=== PATIENT | male | born 1985 | race Caucasian/White ===

== ENCOUNTER 2023-12-23 08:13 | Inpatient (IN) | payer OTHER ==
[2023-12-23] MEDS ORDERED: ONDANSETRON 4 MG/2 ML VIAL ONE (08:29)
[2023-12-23] MEDS ORDERED: MORPHINE 4 MG/ML SYR ONE ×2 (08:30→09:48)
[2023-12-23 08:32] LABS: Absolute Basophils 0.1 K/uL (0-0.5); Absolute Eosinophils 0.3 K/uL (0-0.5); Absolute Lymphocytes (CBC) 3.2 K/uL (0.7-4.9); Absolute Neutrophil 5.6 K/uL (1.8-8.0); Basophils % 1.2 % (0-1.3); Eosinophils % 2.8 % (0-4.4); Hematocrit 43.9 % (39.6-49.0); Hemoglobin 15.1 g/dL (13.6-17.9); Lymphocytes % 31.9 % (15.3-44.8); MCH 30.7 pg (27.0-35.0); MCHC 34.3 g/dL (32.0-36.0); MCV 89.5 fL (80-100); MPV 8.2 fL (7.6-11.3); Monocytes % 9.4 % (3.3-12.3); Neutrophils % 54.7 % (41.7-73.7); Nucleated RBC Absolute Count 0.1 (0-0); Nucleated Red Blood Cells % 0.8 % (0-0); Platelets 353 thou/uL (152-406); RBC Red Blood Cell Count 4.91 M/uL (4.33-5.43); Red Cell Distribution Width 13.1 % (12.1-15.2)
[2023-12-23 08:51] LABS: Anion Gap 7.4 mEq/L (5.0-15.0); BUN Blood Urea Nitrogen 14 mg/dL (7-18); Bicarbonate 29 mEq/L (21-32); Glomerular Filtration Rate 85 ml/min (=/>90); Glucose Level 112 mg/dL (74-106); Potassium 3.4 mEq/L (3.5-5.1); Sodium Level 138 mEq/L (136-145)
[2023-12-23 09:02] LABS: Troponin High Sensitivity < 3.0 pg/mL (<58.9)
[2023-12-23 09:04] LABS: Albumin 4.2 g/dL (3.4-5.0); Albumin/Globulin Ratio 1.1 (1.1-1.8); Bilirubin Direct 0.2 mg/dL (0-0.2); Bilirubin Indirect, Calculated 0.3 mg/dL (0.2-0.8); Bilirubin Total 0.5 mg/dL (0.2-1.0); Globulin 3.8 g/dL (2.3-3.5)
--- NOTE | 2023-12-23 09:04 | RAD REPORT ---
EXAM DESCRIPTION: US - Abdomen Exam Limited - 12/23/2023 8:50 am CLINICAL HISTORY: Abdominal pain. COMPARISON: None. FINDINGS: Multiple gallstones. Gallbladder wall upper limits normal thickness. The biliary tree is normal caliber. IMPRESSION: Cholelithiasis
[2023-12-23] MEDS ORDERED: MAGNES/ALUMIN/SIMET 30ML UCUP ONE (09:09)
[2023-12-23] MEDS ORDERED: LIDOCAINE VISCOUS 2% 10ML ORAL SOLN ONE (09:09)
--- NOTE | 2023-12-23 09:11 | RAD REPORT ---
EXAM DESCRIPTION: CT - Chest Abdomen Pelvis W Cont - 12/23/2023 9:00 am CLINICAL HISTORY: Chest and abdominal pain COMPARISON: none TECHNIQUE: Computed axial tomography of the chest, abdomen and pelvis was obtained. 100 cc Isovue-30 0 was administered intravenously. Oral contrast was not requested. This limits evaluation of bowel. All CT scans are performed using dose optimization technique as appropriate and may include automated exposure control or mA/KV adjustment according to patient size. FINDINGS: The lungs are clear No mediastinal or hilar lymphadenopathy. No pleural effusion. No pericardial effusion. Liver, spleen, pancreas, adrenals and kidneys are unremarkable Multiple gallstones better seen on ultrasound same date. Gallbladder wall does not appear thickened. Biliary tree normal caliber No evidence of diverticulitis Normal appendix. 22 centimeter lipoma extends from the left gluteus region inferiorly to posteromedial to the left fem ur IMPRESSION: Cholelithiasis without evidence of cholecystitis 22 centimeter lipoma left pelvis/left leg
[2023-12-23] MEDS ORDERED: NA CHLORIDE 0.9% 1,000 ML ONE (09:47)
[2023-12-23] MEDS ORDERED: CEFTRIAXONE 1000 MG/VIAL ONE (09:47)
--- NOTE | 2023-12-23 11:31 | RAD REPORT ---
EXAM DESCRIPTION: Nathaly Single View12/23/2023 10:09 am CLINICAL HISTORY: Chest pain COMPARISON: none FINDINGS: The lungs appear clear of acute infiltrate. The heart is normal size IMPRESSION: No acute abnormalities displayed
--- NOTE | 2023-12-23 12:58 | RAD REPORT ---
EXAM DESCRIPTION: MRI - Cholangiogram - 12/23/2023 12:44 pm CLINICAL HISTORY: abd pain COMPARISON: Abdomen Exam Limited dated 12/23/2023; Chest Abdomen Pelvis W Cont dated 12/23/2023 FINDINGS: Three-dimensional MRCP was performed using maximum intensity projection reconstruction on the same work station. No intrahepatic biliary tree dilatation is seen. The common bile duct is normal caliber without evide nce of retained stone, stricture or mass. The pancreatic duct is not pathologically dilated. Cholelithiasis. Limited T2 sequences through the abdomen demonstrates no bulky adenopathy, significant free fluid or abscess. IMPRESSION: Cholelithiasis. No evidence of choledocholithiasis. No pathologic biliary dilatation.
--- NOTE | 2023-12-23 13:24 | ER ---
Nurse's Notes [facility] Name: Arsalan Mckee Age: 38 yrs Sex: Male : 1985 Arrival Date: 12/23/2023 Time: 08:13 Bed 3 Private MD: Diagnosis: Acute pancreatitis without necrosis or infection, unspecified;Other cholelithiasis without obstruction Presentation: 12/22 08:21 Chief complaint: Patient states: sudden onset midsternal chest pain radiating to iw stomach about 20 min COMPLIANCE ADVISOR. Coronavirus screen: At this time, the client does not indicate any symptoms associated with coronavirus-19. Ebola Screen: Patient negative for fever greater than or equal to 101.5 degrees Fahrenheit, and additional compatible Ebola Virus Disease symptoms Patient denies exposure to infectious person. No symptoms or risks identified at this time. Initial Sepsis Screen: Does the patient meet any 2 criteria? No. Patient's initial sepsis screen is negative. Does the patient have a suspected source of infection? No. Patient's initial sepsis screen is negative. Risk Assessment: Do you want to hurt yourself or someone else? Patient reports no desire to harm self or others. Onset of symptoms was December 23, 2023. 08:21 Method Of Arrival: Ambulatory iw 08:21 Acuity: TAMARA 2 iw Triage Assessment: 08:28 General: Appears in no apparent distress. comfortable, Behavior is calm, cooperative, ld1 appropriate for age. Pain: Complains of pain in chest Pain does not radiate. Pain currently is 8 out of 10 on a pain scale. Quality of pain is described as sharp, shooting, throbbing, Pain began suddenly, Is continuous. EENT: No signs and/or symptoms were reported regarding the EENT system. Neuro: Level of Consciousness is awake, alert, obeys commands, Oriented to person, place, time, situation. Cardiovascular: Capillary refill < 3 seconds Patient's skin is warm and dry. Rhythm is sinus rhythm. Respiratory: Airway is patent Respiratory effort is even, unlabored. GI: Abdomen is round non-distended. : No signs and/or symptoms were reported regarding the genitourinary system. Derm: No signs and/or symptoms reported regarding the dermatologic system. Musculoskeletal: No signs and/or symptoms reported regarding the musculoskeletal system. Historical: - Allergies: 08:22 No Known Allergies; iw - Home Meds: 08:22 phentermine oral [Active]; iw - PMHx: 08:22 None; iw - Immunization history:: Adult Immunizations up to date. - Infectious Disease History:: Denies. - Family history:: not pertinent. - Social history:: Smoking status: Patient denies any tobacco usage or history of. - Hospitalizations: : No recent hospitalization is reported. Screenin:29 [facility] ED Fall Risk Assessment (Adult) History of falling in the last 3 months, ld1 including since admission No falls in past 3 months (0 pts). [facility] ED Fall Risk Assessment (Adult) History of falling in the last 3 months, including since admission Confusion or Disorientation. Abuse screen: Denies threats or abuse. Denies injuries from another. Nutritional screening: No deficits noted. Tuberculosis screening: No symptoms or risk factors identified. Assessment: 08:29 General: Appears in no apparent distress. uncomfortable, Behavior is cooperative, ld1 appropriate for age, anxious, crying. Pain: Complains of pain in chest Pain does not radiate. Pain currently is 9 out of 10 on a pain scale. Quality of pain is described as sharp, shooting, throbbing, Pain began suddenly, Is continuous. Neuro: Level of Consciousness is awake, alert, obeys commands, Oriented to person, place, time, situation. Cardiovascular: Reports chest pain, Capillary refill < 3 seconds Patient's skin is warm and dry. Rhythm is sinus rhythm. Respiratory: Airway is patent Respiratory effort is even, unlabored. GI: Abdomen is round non-distended. 11:01 Reassessment: Patient appears in no apparent distress at this time. No changes from ld1 previously documented assessment. Patient and/or family updated on plan of care and expected duration. Pain level reassessed. Patient is alert, oriented x 3, equal unlabored respirations, skin warm/dry/pink. Vital Signs: 08:21 BP 129 / 84; Pulse 89; Resp 18; Pulse Ox 100% on R/A; Pain 10/10; iw 08:29 BP 129 / 84; Pulse 78; Resp 18; Pulse Ox 96% on R/A; Pain 9/10; ld1 08:31 Weight 117.93 kg; ld1 09:25 Pain 6/10; ap3 09:39 BP 112 / 59; Pulse 81; Resp 19; Pulse Ox 100% ; ap3 11:01 BP 109 / 80; Pulse 81; Resp 24; Pulse Ox 100% on R/A; ld1 11:53 BP 113 / 72; Pulse 61; Resp 20; Pulse Ox 100% on R/A; ld1 12:40 BP 110 / 64; Pulse 73; Resp 16; Pulse Ox 100% ; me1 13:00 BP 109 / 61; Pulse 68; Resp 15; Pulse Ox 100% ; me1 08:21 Pain Scale: Adult iw 08:29 Pain Scale: Adult ld1 09:25 Pain Scale: Adult ap3 ED Course: 08:14 Patient arrived in ED. iw 08:[address] MD is Attending Physician. rn 08:16 Amber Groves RN is Primary Nurse. ld1 08:22 Triage completed. iw 08:24 EKG done, by ED staff, reviewed by Tony Way MD. ap3 08:25 Arm band placed on. iw 08:29 No provider procedures requiring assistance completed. Inserted saline lock: 20 gauge ld1 in right antecubital area, using aseptic technique. Blood collected. 08:29 Patient has correct armband on for positive identification. Placed in gown. Bed in low ld1 position. Call light in reach. Side rails up X2. hall monitor on. Pulse ox on. NIBP on. Door closed. Noise minimized. Warm blanket given. 08:52 US Abdomen Limited In Process Unspecified. EDMS 09:02 CT Chest, Abdomen, Pelvis - W/Contrast In Process Unspecified. EDMS 09:41 ED physician to see patient. ap3 10:10 XRAY Chest (1 view) In Process Unspecified. EDMS 12:28 Cholangiogram In Process Unspecified. EDMS 13:24 Steve Gongora is Hospitalizing Provider. rn Administered Medications: 08:36 Drug: morphine IVP or IV 4 mg IVP once over 4 mins Route: IVP; Infused Over: 4 mins; ap3 Site: right antecubital; 09:25 Follow up: Response: No adverse reaction; Pain is decreased; RASS: Alert and Calm (0) ap3 08:36 Drug: Ondansetron IVP 4 mg IVP once; over 2 minutes Route: IVP; Site: right antecubital;ap3 09:25 Follow up: Response: No adverse reaction ap3 09:24 Drug: GI Cocktail without - (Maalox PO 30 ml, Lidocaine Mucous Membrane 2 % 15 ap3 ml) PO once Route: PO; 13:21 Follow up: Response: No adverse reaction me1 09:54 Drug: NS 0.9% IV 1000 ml IV at 1000 ml once Route: IV; Rate: 1000 ml; Site: right ld1 antecubital; 13:21 Follow up: Response: No adverse reaction; IV Status: Completed infusion; IV Intake: me1 1000ml 09:54 Drug: morphine IVP or IV 2 mg IVP once over 4 mins Route: IVP; Infused Over: 4 mins; ld1 Site: right antecubital; 13:20 Follow up: Response: No adverse reaction; Pain is decreased me1 09:54 Drug: Rocephin IV 1 grams IV at calculated rate once; Given slow IV push per pharmacy ld1 instructions Route: IV; Rate: calculated rate; Site: right antecubital; Medication: 08:29 VIS not applicable for this client. ld1 Intake: 13:21 IV: 1000ml; Total: 1000ml. me1 Outcome: 13:24 Decision to Hospitalize by Provider. rn 16:57 Patient left the ED. ld1 Signatures: Dispatcher [employer] Nasrin Solorio RN RN Tony Way MD MD rn Prokisch, Amanda, RN RN ap3 Amber Groves RN RN ld1 Danelle Novak RN RN me1
--- NOTE | 2023-12-23 13:24 | EDPHYS ---
Physician Documentation [facility] Name: Arsalan Mckee Age: 38 yrs Sex: Male : 1985 Arrival Date: 12/23/2023 Time: 08:13 Bed 3 Private MD: ED Physician Tony Way HPI: 12/22 08:25 This 38 yrs old Male presents to ER via Ambulatory with complaints of chest pain. rn 08:25 The patient or guardian reports chest pain that is located primarily in the substernal rn area. The pain radiates to abdomen. Associated signs and symptoms: Pertinent positives: abdominal pain, diaphoresis, Pertinent negatives: cough, palpitations, shortness of breath, syncope. The chest pain is described as crushing. Duration: The patient or guardian reports a single episode, that is still ongoing. Modifying factors: The symptoms are alleviated by nothing. the symptoms are aggravated by nothing. Severity of pain: At its worst the pain was moderate in the emergency department the pain is unchanged. The patient has not experienced similar symptoms in the past. Patient reports sudden onset chest pain that radiates to the abdomen that began just prior to arrival while taking a shower. No trauma. No fever. Does not feel ill. No recent infection. Denies vomiting or diarrhea. 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 Has never had this before. No early family history of cardiac disease.. Historical: - Allergies: 08:22 No Known Allergies; iw - Home Meds: 08:22 phentermine oral [Active]; iw - PMHx: 08:22 None; iw - Immunization history:: Adult Immunizations up to date. - Infectious Disease History:: Denies. - Family history:: not pertinent. - Social history:: Smoking status: Patient denies any tobacco usage or history of. - Hospitalizations: : No recent hospitalization is reported. ROS: 08:25 Constitutional: Negative for fever, chills, and weight loss, Neck: Negative for injury, rn pain, and swelling, Cardiovascular: Positive for chest pain Respiratory: Negative for shortness of breath, cough, wheezing, and pleuritic chest pain, Abdomen/GI: Negative for abdominal pain, nausea, vomiting, diarrhea, and constipation, Back: Negative for injury and pain, MS/Extremity: Negative for injury and deformity, Skin: Negative for injury, rash, and discoloration, Neuro: Negative for headache, weakness, numbness, tingling, and seizure, Exam: 08:25 Constitutional: This is a well developed, well nourished patient who is awake, alert, rn appears anxious and uncomfortable, hand over chest. Head/Face: Normocephalic, atraumatic. Cardiovascular: Regular rate and rhythm. No pulse deficits. Respiratory: Lungs have equal breath sounds bilaterally, clear to auscultation and percussion. No rales, rhonchi or wheezes noted. No increased work of breathing, no retractions or nasal flaring. Abdomen/GI: Soft, non-tender MS/ Extremity: Pulses equal, no cyanosis. Neuro: Awake and alert, GCS 15 10:27 ECG was reviewed by the Attending Physician. rn Vital Signs: 08:21 BP 129 / 84; Pulse 89; Resp 18; Pulse Ox 100% on R/A; Pain 10/10; iw 08:29 BP 129 / 84; Pulse 78; Resp 18; Pulse Ox 96% on R/A; Pain 9/10; ld1 08:31 Weight 117.93 kg; ld1 09:25 Pain 6/10; ap3 09:39 BP 112 / 59; Pulse 81; Resp 19; Pulse Ox 100% ; ap3 11:01 BP 109 / 80; Pulse 81; Resp 24; Pulse Ox 100% on R/A; ld1 11:53 BP 113 / 72; Pulse 61; Resp 20; Pulse Ox 100% on R/A; ld1 12:40 BP 110 / 64; Pulse 73; Resp 16; Pulse Ox 100% ; me1 13:00 BP 109 / 61; Pulse 68; Resp 15; Pulse Ox 100% ; me1 08:21 Pain Scale: Adult iw 08:29 Pain Scale: Adult ld1 09:25 Pain Scale: Adult ap3 MDM: 08:14 Patient medically screened. rn 09:59 ED course: Consulted with Dr. Hale, requests MRCP, if normal can keep here, if rn abnormal or stone in duct will transfer.. 13:23 Differential diagnosis: cholecystitis, Cholelithiasis esophagitis, gastritis, rn gastroesophageal reflux disease (GERD), pancreatitis, peptic ulcer disease. Data reviewed: vital signs, nurses notes, lab test result(s), radiologic studies, CT scan, ultrasound, and as a result, I will admit patient. Consideration of Admission/Observation Patient was admitted/placed on observation. Escalation of care including admission/observation considered. Counseling: I had a detailed discussion with the patient and/or guardian regarding the historical points, exam findings, and any diagnostic results supporting the discharge/admit diagnosis, lab results, radiology results, the need for further work-up and treatment in the hospital. Response to treatment: the patient's symptoms have markedly improved after treatment, and as a result, I will admit patient. ED course: MRCP negative for choledocholithiasis. Spoke again with Dr. Hale and states okay to admit here. Will admit to hospitalist service.. 12/22 08:16 Order name: Basic Metabolic Panel; Complete Time: 09:38 ld1 12/22 08:16 Order name: CBC with Diff; Complete Time: 08:41 ld1 12/22 08:16 Order name: Troponin HS; Complete Time: 09:38 ld1 12/22 08:22 Order name: LFT's; Complete Time: 09:38 rn 12/22 08:22 Order name: Lipase; Complete Time: 09:38 rn 12/22 14:12 Order name: Urinalysis w/ reflexes EDMS 12/22 14:12 Order name: CBC with Automated Diff EDMS 12/22 14:12 Order name: CBC with Automated Diff EDMS 12/22 14:12 Order name: CBC with Automated Diff EDMS 12/22 14:12 Order name: CBC with Automated Diff EDMS 12/22 14:12 Order name: CBC with Automated Diff EDMS 12/22 14:12 Order name: Comprehensive Metabolic Panel EDMS 12/22 14:12 Order name: Comprehensive Metabolic Panel EDMS 12/22 14:12 Order name: Comprehensive Metabolic Panel EDMS 12/22 14:12 Order name: Comprehensive Metabolic Panel EDMS 12/22 14:12 Order name: Comprehensive Metabolic Panel EDMS 12/22 14:12 Order name: Lipase EDMS 12/22 14:12 Order name: Lipase EDMS 12/22 14:12 Order name: Lipase EDMS 12/22 14:12 Order name: Lipase EDMS 12/22 14:12 Order name: Lipase EDMS 12/22 14:12 Order name: Magnesium EDMS 12/22 14:12 Order name: Magnesium EDMS 12/22 14:12 Order name: Magnesium [facility] 12/22 14:12 Order name: Magnesium EDCT 12/22 14:12 Order name: Magnesium [facility] 12/22 08:16 Order name: XRAY Chest (1 view); Complete Time: 13:00 ld1 12/22 08:23 Order name: CT Chest, Abdomen, Pelvis - W/Contrast; Complete Time: 09:38 rn 12/22 08:23 Order name: US Abdomen Limited; Complete Time: 09:38 rn 12/22 10:03 Order name: Cholangiogram; Complete Time: 13:00 EDCT 12/22 08:16 Order name: EKG; Complete Time: 08:17 ld1 12/22 14:10 Order name: CONS Physician Consult EDCT 12/22 08:16 Order name: Cardiac monitoring; Complete Time: 08:24 ld1 12/22 08:16 Order name: EKG - Nurse/Tech; Complete Time: 08:24 ld1 12/22 08:16 Order name: IV Saline Lock; Complete Time: 08:32 ld1 12/22 08:16 Order name: Labs collected and sent; Complete Time: 08:32 ld1 12/22 08:16 Order name: O2 Per Protocol; Complete Time: 08:24 ld1 12/22 08:16 Order name: O2 Sat Monitoring; Complete Time: 08:24 ld EC:27 Rate is 88 beats/min. Rhythm is regular. QRS [place] is Normal. NC interval is normal. QRS rn interval is normal. QT interval is normal. No Q waves. T waves are Normal. No ST changes noted. Clinical impression: NSR w/ Non-specific ST/T Changes. Interpreted by me. Reviewed by me. Administered Medications: 08:36 Drug: morphine IVP or IV 4 mg IVP once over 4 mins Route: IVP; Infused Over: 4 mins; ap3 Site: right antecubital; 09:25 Follow up: Response: No adverse reaction; Pain is decreased; RASS: Alert and Calm (0) ap3 08:36 Drug: Ondansetron IVP 4 mg IVP once; over 2 minutes Route: IVP; Site: right antecubital;ap3 09:25 Follow up: Response: No adverse reaction ap3 09:24 Drug: GI Cocktail without - (Maalox PO 30 ml, Lidocaine Mucous Membrane 2 % 15 ap3 ml) PO once Route: PO; 13:21 Follow up: Response: No adverse reaction me1 09:54 Drug: NS 0.9% IV 1000 ml IV at 1000 ml once Route: IV; Rate: 1000 ml; Site: right ld1 antecubital; 13:21 Follow up: Response: No adverse reaction; IV Status: Completed infusion; IV Intake: me1 1000ml 09:54 Drug: morphine IVP or IV 2 mg IVP once over 4 mins Route: IVP; Infused Over: 4 mins; ld1 Site: right antecubital; 13:20 Follow up: Response: No adverse reaction; Pain is decreased me1 09:54 Drug: Rocephin IV 1 grams IV at calculated rate once; Given slow IV push per pharmacy ld1 instructions Route: IV; Rate: calculated rate; Site: right antecubital; Disposition Summary: 12/23/23 13:24 Hospitalization Ordered Notes: Hospitalization Status: Inpatient Admission rn Provider: Steve Gongora rn Condition: Stable rn Problem: new rn Symptoms: have improved rn Bed/Room Type: Standard rn Location: Telemetry/MedSurg (Inpatient)(12/23/23 16:18) bd Room Assignment: 225(12/23/23 16:18) bd Diagnosis - Acute pancreatitis without necrosis or infection, unspecified rn - Other cholelithiasis without obstruction rn Forms: - Medication Reconciliation Form rn - SBAR form rn - Leadership Thank You Letter rn Signatures: Dispatcher [employer] EDMS Heaven Lee Irene, RN RN iw Nieto, Roman, MD MD rn Prokisch, Amanda, RN RN ap3 Amber Groves RN RN ld1 Danelle Novak RN me1 Corrections: (The following items were deleted from the chart) 08:22 08:22 HEPATIC FUNCTION+C.LAB.BRZ ordered. EDMS EDMS 08:22 08:22 LIPASE+C.LAB.BRZ ordered. EDMS EDMS 14:23 13:24 Telemetry/MedSurg (Inpatient) rn bd 14:23 13:24 rn bd 16:18 14:23 [facility] ER HOLD bd bd 16:18 14:23 ERHOLD- bd bd
--- NOTE | 2023-12-23 14:05 | P.HP ---
Certification for Inpatient Patient admitted to: Inpatient Practitioner: I am a practitioner with admitting privileges, knowledge of patient current condition, hospital course, and medical plan of care. Services: Services provided to patient in accordance with Admission requirements found in Title 42 Section 412.3 of the Code of Federal Regulations Patient History Date of Service: 12/23/23 Reason for admission: Pancreatitis, cholelithiasis History of Present Illness: 38 yrs old Male with no significant past medical history presents with chest pain/abdominal pain. Reports radiation to the back, he denies ever having the symptoms before. No reported shortness of breath, cough, nausea vomiting diarrhea. He denies history of hypertension, hyperlipidemia, no history of CO, he reports pain started after eating. He denies alcohol use, plan to admit for acute pancreatitis, cholelithiasis, surgery to consult. Laboratory evaluation lipase 1209, hypokalemia potassium 3.4 CBC unremarkable, MRCP IMPRESSION: Cholelithiasis. No evidence of choledocholithiasis. No pathologic biliary dilatation., Abdominal ultrasound FINDINGS: Multiple gallstones. Gallbladder wall upper limits normal thickness. The biliary tree is normal caliber. IMPRESSION: Cholelithiasis, CT of the abdomen pelvis IMPRESSION: Cholelithiasis without evidence of [id number] centimeter lipoma left pelvis/left leg. Allergies No Known Allergies Allergy (Unverified 10/18/17 19:47) - Past Medical/Surgical History -: Obesity on phentermine -: Ankle surgery -: By surgery Psychosocial/ Personal History: lives with spouse - Social History Smoking Status: Never smoker Alcohol use: No CD- Drugs: Yes Caffeine use: Yes Place of Residence: Home Review of Systems PER HPI Physical Examination - Physical Exam General: Alert, In no apparent distress, Oriented x3 HEENT: Atraumatic, Normocephalic Respiratory: Clear to auscultation bilaterally, Normal air movement Cardiovascular: Normal pulses, Regular rate/rhythm Capillary refill: <2 Seconds Gastrointestinal: Other (Epigastric, right upper quadrant tenderness) Musculoskeletal: No clubbing, No swelling Integumentary: No breakdown, No significant lesion Neurological: Normal speech, Normal strength at 5/5 x4 extr - Studies Laboratory Data (last 24 hrs) 12/23/23 12/23/23 12/23/23 08:24 08:24 08:24 WBC 10.20 Hgb 15.1 Hct 43.9 Plt Count 353 Sodium 138 Potassium 3.4 L BUN 14 Creatinine 1.14 Glucose 112 H Total Bilirubin 0.5 AST 46 H ALT 42 Alkaline Phosphatase 74 Lipase 1209 H Assessment and Plan - Plan Assessment plan Acute pancreatitis Acute Coleylithiasis Surgery to consult, telemetry, IV fluids, as needed analgesics, as needed antiemetics, empiric antibiotic Trend lipase he reports pain started after eating. He denies alcohol use, Reports radiation to the back, he denies ever having the symptoms before. No reported shortness of breath, cough, nausea vomiting diarrhea. ipase 1209, CBC unremarkable, MRCP IMPRESSION: Cholelithiasis. No evidence of choledocholithiasis. No pathologic biliary dilatation., Abdominal ultrasound FINDINGS: Multiple gallstones. Gallbladder wall upper limits normal thickness. The biliary tree is normal caliber. IMPRESSION: Cholelithiasis, CT of the abdomen pelvis IMPRESSION: Cholelithiasis without evidence of [id number] centimeter lipoma left pelvis/left leg Hypokalemia And electrolyte replaced. potassium 3.4 Obesity On phentermine Full code Diet n.p.o. except ice chips SCDs Lovenox Disposition Home independent prior Discharge Plan: Home - Advance Directives Does patient have a Living Will: No Does patient have a Durable POA for Healthcare: No - Code Status/Comfort Care Code Status: Full Code Critical Care: No Time Spent Managing Pts Care (In Minutes): 55
[2023-12-23] MEDS ORDERED: ONDANSETRON 4 MG/2 ML VIAL IV PRN (14:08)
[2023-12-23] MEDS ORDERED: ACETAMINOPHEN 500 MG TAB PO PRN (14:08)
[2023-12-23] MEDS: NA CHLORIDE 0.9% 1,000 ML IV SCH (15:00)
[2023-12-23 15:42] VITALS: BMI 36.3
[2023-12-23 17:15] VITALS: O2SAT 100
[2023-12-23] MEDS ORDERED: PROMETHAZINE INJ 25 MG/ML AMP IV PRN (17:25)
[2023-12-23] MEDS ORDERED: HYDROMORPHONE HCL 0.5 MG/0.5 ML INJ IV PRN (17:25)
[2023-12-23] MEDS: PIPER TAZO 3.375 GM in NA CHLORIDE 0.9% 100 ML IV SCH (17:45)
--- NOTE | 2023-12-23 18:42 | CON ---
Date of Consultation: 12/23/2023 Reason For Consultation: Abdominal pain. History Of Present Illness: The patient is a 38-year-old gentleman who comes in with acute onset of epigastric pain in the lower chest, upper abdomen, sharp, severe, first time. Had some nausea but no vomiting. No bloating or belching or heartburn. Never had pain like this before. No radiation. N o change in bowel habits. No blood per rectum. No dysuria or hematuria. No sore throat, runny nose , cough, headaches, or dizziness. No chest pain. No fevers or chills. No history of jaundice. The patient had a bowl of cereal prior to this episode. Review of Systems: Otherwise, unremarkable. Past Medical History: Prediabetic. Patient took Wegovy 2 weeks ago and phentermine yesterday. Past Surgical History: Face surgery and ankle surgery. No surgeries on his abdomen. Allergies: NONE. Social History: The patient does not smoke. Rarely drinks. Family History: Noncontributory. Physical Examination: Vital Signs: Stable. He is afebrile. General: He is awake, alert, oriented x3. Head and Neck: No evidence of icterus. No neck masses. No JVD. Throat clear. Neck supple. Chest: Clear. Heart: S1, S2. Abdomen: Soft, nondistended. Positive bowel sounds. Positive epigastric tenderness. No rebound, r igidity, or guarding. Extremity: Adequately perfused, nontender. Neuro: Nonfocal. Laboratory Data: Shows a white count of 10.2, there is no left shift. Chemistry is significant for potassium of 3.4, glucose of 112, AST of 46, lipase of 1209. CT of the abdomen, chest and pelvis and abdominal ultrasound reviewed. The patient does not have any radiographic evidence of pancreatitis. However, he does have multi stone cholelithiasis with no pericholecystic fluid and gallbladder wall upper limits of normal and biliary tree is normal. MRCP was done which did not show any evidence of common bile duct stone. Assessment: Gallstone pancreatitis. Recommendation: NPO today. IV antibiotics is ordered, parenteral pain management, hydration, serial abdominal exam. Once the patient's pain is better and he is not tender, we can start clear liquids and advance slowly. As the patient is taking phentermine and recent Wegovy injection, I spoke with misael tomlin anesthesiologist, Dr. Bridges, it is felt that for non-urgent surgical case, we should wait at [facility] a week prior to entertaining any thought of surgery. Therefore, the patient can be discharged kee e in 24 to 48 hours, following which he can follow up with me in my office and I will schedule him fo r an outpatient surgery later next week or the week after. Plan of care discussed in detail with the patient. HORACIO/JENN Voice ID: [id number] Report ID: [id number]
[2023-12-23] MEDS: POTASSIUM CL SA 10 MEQ TAB PO ONE (20:44)
[2023-12-23] MEDS: ZOLPIDEM TARTRATE 5 MG TABLET PO PRN (20:49)
[2023-12-23 21:57] LABS: Specific Gravity > 1.030 (1.005-1.030); Urine Bilirubin NEGATIVE (Negative); Urine Blood Negative (Negative); Urine Clarity Clear (Clear); Urine Color Yellow (Yellow); Urine Glucose NEGATIVE (Negative); Urine Ketones NEGATIVE (Negative); Urine Microscopic Reflex YN NO UMIC; Urine Nitrite NEGATIVE (Negative); Urine Protein NEGATIVE (Negative); Urine Urobilinogen Normal (Normal); Urine pH 5.5 (5.0-7.0)
[2023-12-24 06:52] LABS: Absolute Basophils 0.1 K/uL (0-0.5); Absolute Eosinophils 0.3 K/uL (0-0.5); Absolute Lymphocytes (CBC) 2.2 K/uL (0.7-4.9); Absolute Monocytes 0.6 K/uL (0.1-1.3); Absolute Neutrophil 4.3 K/uL (1.8-8.0); Basophils % 0.7 % (0-1.3); Eosinophils % 3.8 % (0-4.4); Hematocrit 36.1 % (39.6-49.0); Hemoglobin 12.6 g/dL (13.6-17.9); Lymphocytes % 30.1 % (15.3-44.8); MCH 31.2 pg (27.0-35.0); MCHC 34.9 g/dL (32.0-36.0); MCV 89.4 fL (80-100); MPV 7.9 fL (7.6-11.3); Monocytes % 7.8 % (3.3-12.3); Neutrophils % 57.6 % (41.7-73.7); Nucleated Red Blood Cells % 0.1 % (0-0); Platelets 308 thou/uL (152-406); RBC Red Blood Cell Count 4.04 M/uL (4.33-5.43); Red Cell Distribution Width 13.1 % (12.1-15.2)
--- NOTE | 2023-12-24 08:03 | P.PN ---
Subjective Date of Service: 12/24/23 Chief Complaint: Pancreatitis, cholelithiasis Admitted for acute cholelithiasis with with acute pancreatitis, with intractable abdominal pain Pain control as needed analgesics, surgery following, patient on IV antibiotic Zosyn - Physical Exam General: Alert, In no apparent distress, Oriented x3 HEENT: Atraumatic, Normocephalic Respiratory: Clear to auscultation bilaterally, Normal air movement Cardiovascular: Normal pulses, Regular rate/rhythm Capillary refill: <2 Seconds Gastrointestinal: Other (Epigastric, right upper quadrant tenderness) Musculoskeletal: No clubbing, No swelling Integumentary: No breakdown, No significant lesion Neurological: Normal speech, Normal strength at 5/5 x4 extr Review of Systems Per HPI Physical Examination - Vital Signs Temperature: 97.5 F Blood Pressure: 113/61 Pulse: 61 Respirations: 18 Pulse Ox (%): 99 - Studies Laboratory Data (last 24 hrs) 12/23/23 12/23/23 12/23/23 08:24 08:24 08:24 WBC 10.20 Hgb 15.1 Hct 43.9 Plt Count 353 Sodium 138 Potassium 3.4 L BUN 14 Creatinine 1.14 Glucose 112 H Total Bilirubin 0.5 AST 46 H ALT 42 Alkaline Phosphatase 74 Lipase 1209 H Assessment And Plan - Plan Assessment plan Acute pancreatitis Acute Coleylithiasis Surgery to consult, telemetry, IV fluids, as needed analgesics, as needed antiemetics, empiric antibiotic Trend lipase he reports pain started after eating. He denies alcohol use, Reports radiation to the back, he denies ever having the symptoms before. No reported shortness of breath, cough, nausea vomiting diarrhea. ipase 1209, CBC unremarkable, MRCP IMPRESSION: Cholelithiasis. No evidence of choledocholithiasis. No pathologic biliary dilatation., Abdominal ultrasound FINDINGS: Multiple gallstones. Gallbladder wall upper limits normal thickness. The biliary tree is normal caliber. IMPRESSION: Cholelithiasis, CT of the abdomen pelvis IMPRESSION: Cholelithiasis without evidence of centimeter lipoma left pelvis/left leg Hypokalemia And electrolyte replaced. potassium 3.4 Obesity On phentermine Full code Diet n.p.o. except ice chips SCDs Lovenox Disposition Home independent prior Discharge Plan: Home Critical Care: No Time Spent Managing PTS Care (In Minutes): 35
[2023-12-24 12:37] LABS: Albumin 3.2 g/dL (3.4-5.0); Anion Gap 5.8 mEq/L (5.0-15.0); Bilirubin Total 0.7 mg/dL (0.2-1.0); Globulin 3.1 g/dL (2.3-3.5); Magnesium 2.1 mg/dL (1.6-2.4); Potassium 3.8 mEq/L (3.5-5.1); Protein, Total 6.3 g/dL (6.4-8.2)
--- NOTE | 2023-12-24 13:11 | EKG ---
Test Date: 2023-12-23 Test Time: 08:19:41 Electric[employer] Substation Supervisor: JOLIE MEASUREMENT RESULTS: Intervals: Rate: 101 IA: QRSD: 98 QT: 354 QTc: 459 [place]: P: IA: QRS: -24 T: 29 INTERPRETIVE STATEMENTS: Sinus tachycardia Inferior infarct, age undetermined Cannot rule out Anterior infarct, age undetermined Abnormal ECG No previous ECG available for comparison Electronically Signed On 12-24-23 13:07:04 CDT by Richard Borges
--- NOTE | 2023-12-24 13:11 | EKG ---
Test Date: 2023-12-23 Test Time: 08:21:53 Light Oil Operator: JOLIE MEASUREMENT RESULTS: Intervals: Rate: 88 OR: 128 QRSD: 102 QT: 378 QTc: 457 [place]: P: OR: 128 QRS: -20 T: 35 INTERPRETIVE STATEMENTS: Normal sinus rhythm Inferior infarct, age undetermined Abnormal ECG No previous ECG available for comparison Electronically Signed On 12-24-23 13:06:36 CDT by Richard Borges
[2023-12-24 13:31] VITALS: BP 97/57; TEMP 97.6
--- NOTE | 2023-12-24 14:00 | PN ---
Date of Progress Note: 12/24/2023 Subjective: The patient is awake, alert. Denies any abdominal pain. Tolerating clear liquids. Objective: Vitals Signs: Stable, afebrile. Abdomen: Soft, nondistended, nontender. Positive bowel sounds. Laboratory Data: Shows a white count of 7.4 today. There is no left shift. Chemistry data is still pending. Assessment: Gallstone pancreatitis. Recommendation: As the patient has been taking phentermine, the patient cannot and should not underg o semi-elective surgery at this time. We will let him eat regular diet for lunch and if tolerated, h e can go home. He can follow up with me next week in my office at which time, we will schedule outpa tient cholecystectomy for the patient and the patient was advised not to take the phentermine until a fter the surgery. Also, the plan of care was discussed with Dr. Burgess. HORACIO/JENN Voice ID: [id number] Report ID: [id number]
--- NOTE | 2023-12-25 15:19 | P.DS ---
Admission Date: 12/23/23 Discharge Date: 12/25/23 Disposition: ROUTINE DISCHARGE Discharge Condition: GOOD Reason for Admission: Pancreatitis, cholelithiasis Brief History of Present Illness: 38 yrs old Male with no significant past medical history presents with chest pain/abdominal pain. Reports radiation to the back, he denies ever having the symptoms before. No reported shortness of breath, cough, nausea vomiting diarrhea. He denies history of hypertension, hyperlipidemia, no history of AR, he reports pain started after eating. He denies alcohol use, plan to admit for acute pancreatitis, cholelithiasis, surgery to consult. Laboratory evaluation lipase 1209, hypokalemia potassium 3.4 CBC unremarkable, MRCP IMPRESSION: Cholelithiasis. No evidence of choledocholithiasis. No pathologic biliary dilatation., Abdominal ultrasound FINDINGS: Multiple gallstones. Gallbladder wall upper limits normal thickness. The biliary tree is normal caliber. IMPRESSION: Cholelithiasis, CT of the abdomen pelvis IMPRESSION: Cholelithiasis without evidence of [id number] centimeter lipoma left pelvis/left leg. - Physical Exam General: Alert, In no apparent distress, Oriented x3 HEENT: Atraumatic, Normocephalic Respiratory: Clear to auscultation bilaterally, Normal air movement Cardiovascular: Normal pulses, Regular rate/rhythm Capillary refill: <2 Seconds Gastrointestinal: Other (Epigastric, right upper quadrant tenderness) Musculoskeletal: No clubbing, No swelling Integumentary: No breakdown, No significant lesion Neurological: Normal speech, Normal strength at 5/5 x4 extr Hospital Course: 38 year-old patient presented with abdominal pain. Was noted to have acute Coleylithiasis with acute pancreatitis. Was evaluated by surgery. Condition improved with bowel rest, as needed analgesics, IV antibiotics. Patient tolerating diet, stable for discharge to home with follow-up appointment with primary care physician. Follow-up with surgery after discharge PROBLEM: Abdominal pain Cholelithiasis Acute pancreatitis Follow-up with surgery after discharge for scheduled laparoscopic cholecystectomy after acute pancreatitis resolved Rad/Lab/Micro: CBC unremarkable, MRCP IMPRESSION: Cholelithiasis. No evidence of choledocholithiasis. No pathologic biliary dilatation., Abdominal ultrasound FINDINGS: Multiple gallstones. Gallbladder wall upper soares its normal thickness. The biliary tree is normal caliber. IMPRESSION: Cholelithiasis, CT of the abdomen pelvis IMPRESSION: Cholelithiasis without evidence of [id number] centimeter lipoma left pelvis/left leg MRCP 11/25 IMPRESSION: Cholelithiasis. No evidence of choledocholithiasis. No pathologic biliary dilatation Continue home medicines as previously prescribed GOAL: Clear understanding of disease process INSTRUCTIONS: Physician Discharge Instructions: -Follow-up with PCP in 1 to 2 weeks -Please call Dr. Burgess at [phone] if any questions regarding hospital stay -Please call nursing station at [phone] if any nursing or medication questions -Return to the emergency room if symptoms worsen Diet: ADA, low sodium Activity: Fall precautions Vital Signs/Physical Exam: Temp Pulse Resp BP Pulse Ox 97.6 F 67 20 97/57 L 97 12/24/23 12:00 12/24/23 12:00 12/24/23 12:00 12/24/23 12:00 12/24/23 12:00 Laboratory Data at Discharge: WBC 7.40 thou/uL (4.3-10.9) 12/24/23 06:30 Hgb 12.6 g/dL (13.6-17.9) L D 12/24/23 06:30 Hct 36.1 % (39.6-49.0) L 12/24/23 06:30 Plt Count 308 thou/uL (152-406) 12/24/23 06:30 Sodium 138 mEq/L (136-145) 12/24/23 11:55 Potassium 3.8 mEq/L (3.5-5.1) 12/24/23 11:55 BUN 10 mg/dL (7-18) 12/24/23 11:55 Creatinine 1.06 mg/dL (0.70-1.30) 12/24/23 11:55 Glucose 94 mg/dL (74-106) 12/24/23 11:55 Magnesium 2.1 mg/dL (1.6-2.4) 12/24/23 11:55 Total Bilirubin 0.7 mg/dL (0.2-1.0) 12/24/23 11:55 AST 14 U/L (15-37) L 12/24/23 11:55 ALT 36 U/L (16-61) 12/24/23 11:55 Alkaline Phosphatase 46 U/L (45-117) D 12/24/23 11:55 Lipase 53 U/L (13-75) 12/24/23 11:55 Home Medications: Semaglutide [Wegovy] 0.5 mg SQ WE 12/23/23 Hydrocodone 10/APAP 325 [[place] 10/325] 1 tab PO Q6H PRN #20 tab 12/24/23 ursodioL [Actigall] 300 mg PO BID #60 cap 12/24/23 New Medications: ursodioL [Actigall] 300 mg PO BID #60 cap Hydrocodone 10/APAP 325 [[place] 10/325] 1 tab PO Q6H PRN #20 tab PRN Reason: Pain Physician Discharge Instructions: -DC IV and DC home -Follow-up with PCP in 1 to 2 weeks -Follow-up with Surgery in 1 to 2 weeks -Please call Dr. Burgess at [phone] if any questions regarding hospital stay -Please call nursing station at [phone] if any nursing or medication questions -Return to the emergency room if symptoms worsen Diet: low fat Activity: Fall precautions Followup: NONE,NONE [Primary Care Provider] - Tod Hale MD [ACTIVE - CAN ADMIT] - 1 Week Time spent managing pt's care (in minutes): 55
== END 2023-12-24 13:59 | disposition home or self-care (01) | DRG 444 ==
LOC: ER 08:13 → ERHOLD 14:05 → 2ND 16:28
PROVIDERS: ADMIT Hospitalist; ATTEND Hospitalist
DX: K80.20 Calculus of gallbladder without cholecystitis without obstruction (principal); K85.10 Biliary acute pancreatitis without necrosis or infection; I10 Essential (primary) hypertension; E78.5 Hyperlipidemia, unspecified; E87.6 Hypokalemia; E66.9 Obesity, unspecified; Z68.36 Body mass index [BMI] 36.0-36.9, adult
CPT/HCPCS: 36415; 71045; 71260; 74177; 74181; 76705; 80048; 80053; 80076; 81003; 83690; 83735; 84484; 85025; 93005; 96361; 96374; 96375; 99285; J0696; J2405; J2543; J7030; Q9967

== ENCOUNTER 2024-01-02 07:46 | Day surgery (SDC) | payer OTHER ==
[2024-01-01 14:58] LABS: ALT/SGPT 27 U/L (16-61); Albumin 3.8 g/dL (3.4-5.0); Albumin/Globulin Ratio 1.1 (1.1-1.8); Alkaline Phosphatase 70 U/L (45-117); Bilirubin Total 0.3 mg/dL (0.2-1.0); Globulin 3.6 g/dL (2.3-3.5); Protein, Total 7.4 g/dL (6.4-8.2)
[2024-01-01 14:59] LABS: AST/SGOT < 10 U/L (15-37); Bilirubin Direct < 0.2 mg/dL (0-0.2); Bilirubin Indirect, Calculated 0.1 mg/dL (0.2-0.8)
[2024-01-02] MEDS: Ringers Lactate 1,000 ML IV ONE (08:10)
[2024-01-02] MEDS ORDERED: BUPIVACAINE 0.5% PF 10 ML VIAL ONE (08:12)
[2024-01-02] MEDS ORDERED: FENTANYL CITR 100 MCG/2 ML ONE (08:21)
[2024-01-02] MEDS ORDERED: ROCURONIUM 50 MG/5 ML VIAL IV ONE (08:21)
[2024-01-02] MEDS ORDERED: ONDANSETRON 4 MG/2 ML VIAL ONE ×2 (08:21→11:15)
[2024-01-02] MEDS ORDERED: MIDAZOLAM HCL 2 MG/2 ML INJ ONE (08:21)
[2024-01-02] MEDS ORDERED: LIDOCAINE 2% MPF 5 ML VIAL ONE (08:21)
[2024-01-02] MEDS ORDERED: propofoL 200 MG/20 ML VIAL IV ONE (08:21)
[2024-01-02] MEDS: CEFOXITIN SODIUM 1 GM/VIAL ONE (08:46)
[2024-01-02] MEDS ORDERED: dexAMETHasone 10 MG/ML VIAL ONE (08:48)
[2024-01-02] MEDS ORDERED: NEOSTIGMINE 1 MG/ML -10 ML VIAL ONE (09:24)
[2024-01-02] MEDS ORDERED: GLYCOPYRROLATE 0.2 MG/ML SYR ONE (09:24)
[2024-01-02] MEDS ORDERED: KETOROLAC 30 MG/ML INJ ONE (09:24)
[2024-01-02 09:51] VITALS: O2SAT 100
--- NOTE | 2024-01-02 09:58 | P.OP ---
Date of Service: 01/02/24 Preop diagnosis: Gallstone pancreatitis Postop diagnosis: Same, adhesions Procedure performed: Laparoscopic cholecystectomy, lysis of adhesions Surgeon: Tod Hale MD Program Supervisor: Marily GALINDO Estimated blood loss: Minimal Specimen: Gallbladder Findings: As above Anesthesia: General Complications: None Drains: None Fluids and blood products: Nonapplicable Disposition: Recovery room Operative note: Patient brought to the OR and placed in the supine position. General anesthesia began. Patient prepped and draped in the usual sterile fashion. Marcaine 0.5% right locally. 15 blade used to make a 1 cm supraumbilical midline incision. Subcutaneous tissue divided and bleeding controlled cautery. Fascia identified and divided. #1 Vicryl stay suture placed. Peritoneal cavity entered with sharp and blunt dissection. 12 mm trocar placed into the peritoneal cavity under direct vision. Pneumoperitoneum established. Three 5 mm trocars placed under direct vision. 1 trocar placed in the epigastric region just to the right of midline. Two 5 mm trocar placed in the right subcostal region. Laparoscopy revealed extensive adhesions to the gallbladder which were omental in nature. LigaSure used to divide all of these adhesions. Approximately 10 minutes was required to lyse all the adhesions. Subsequently fundus identified and retracted superiorly. Infundibulum identified and retracted inferolaterally. Cystic duct and cystic artery clearly identified with sharp blunt dissection. Clips placed and both structures divided. Cautery used to remove the gallbladder from the liver bed. Bleeding on the liver bed controlled with cautery. Gallbladder retrieved to the umbilicus via Endo Catch bag. Right upper quadrant examined. No evidence of bleeding or bile leakage appreciated. All trocars removed under direct vision. Stay sutures tied to each other to reapproximate the fascial defect. Subcu wounds irrigated and bleeding controlled cautery. 3-0 chromic used to approximate subcu tissue and close skin. Sterile dressing applied. Patient awakened and taken to recovery room in good general condition. CC:
[2024-01-02] MEDS: HYDROMORPHONE HCL 1 MG/ML INJ ONE (10:11)
[2024-01-02] MEDS ORDERED: HYDROCODONE/APAP 7.5/325 MG TAB ONE (11:09)
[2024-01-02 11:14] VITALS: BP 114/63; TEMP 97.6
[2024-01-02] MEDS: ONDANSETRON 4 MG/2 ML VIAL ONE (11:21)
[2024-01-02] MEDS: HYDROCODONE/APAP 7.5/325 MG TAB PO PRN (11:28)
== END 2024-01-02 12:00 | disposition home or self-care (01) ==
LOC: OR 07:46
PROVIDERS: ATTEND Surgery
PROC: 0DNU4ZZ Release Omentum, Percutaneous Endoscopic Approach (ICD-10-PCS; 2024-01-02)
PROC: 0FT44ZZ Resection of Gallbladder, Percutaneous Endoscopic Approach (ICD-10-PCS; principal; 2024-01-02 08:30)
DX: K85.10 Biliary acute pancreatitis without necrosis or infection (principal); K66.0 Peritoneal adhesions (postprocedural) (postinfection)
CPT/HCPCS: 36415; 80076; 88304; 83690; 47562; 49329; J2704; J2710; J2001; J2250; J3010; J1100; J1170; J0694; J2405 ×2; J7120